=== PATIENT | female | born 1980 | race Caucasian/White ===

== ENCOUNTER → 2016-06-14 | Outpatient (REF) ==
[~2016-06-14] MED LIST: IBU800 M1 PO; MOTRIN 800800 MG/TAB PO; PERCOCET 325 MG1 TA2 PO; PRENATAL PO; PRENATAL1 TA2 PO; SYNTHROID0.1 MG/TAB PO; TIROSINT100 MC1 PO
== END ==
LOC: ZLAB.WCH 17:19
PROVIDERS: Nurse Practitioner Family
DX: Z01.89 Encounter for other specified special examinations (principal)

== ENCOUNTER → 2016-08-23 | Outpatient (REF) | LOC: ZLAB.WCH 18:10 | PROVIDERS: Nurse Practitioner Family | DX: Z01.89 Encounter for other specified special examinations (principal) ==

== ENCOUNTER 2017-06-07 12:54 | Emergency (ER) | payer MEDICAID ==
[~2017-06-07] VITALS: Ht 162.6 cm; Wt 84.5 kg
[2017-06-07 12:56] VITALS: PULSE 89; TEMP 97.8
[2017-06-07 13:19] LABS: COLLECTION METHOD CLEAN CATCH
[2017-06-07 13:35] LABS: MUCOUS Present /lpf; PH 7 (5-8); SQUAMOUS EPITHELIAL 0-2 /hpf; URINE APPEARANCE Clear; URINE BACTERIA None Seen /hpf; URINE BILIRUBIN Negative (NEGATIVE); URINE BLOOD Negative (NEGATIVE); URINE COLOR Yellow; URINE GLUCOSE Negative (NEGATIVE); URINE KETONE 1+ (NEGATIVE); URINE LEUKOCYTE ESTERASE Negative (NEGATIVE); URINE NITRATE Negative (NEGATIVE); URINE PROTEIN(semi-quant) Negative (NEGATIVE); URINE RBC 0-2 /hpf; URINE UROBILINOGEN Negative (NEGATIVE)
[2017-06-07 13:42] LABS: HEMATOCRIT 34.8 % (37.0-47.0); HEMOGLOBIN 11.9 g/dl (12.5-16.0); MEAN CELL VOLUME 84 fl (80.0-100.0); MEAN CORPUSCULAR HEMOGLOBIN 29 pg (27.0-31.0); MEAN CORPUSCULAR HGB CONC 34 g/dl (33.0-37.0); MEAN PLATELET VOLUME 9.3 fl (7.4-10.4); PLATELET COUNT 210 K/mm3 (130-400); RED BLOOD COUNT 4.16 M/mm3 (4.10-5.30); REDCELL DISTRIBUTION WIDTH-CV 13.5 % (11.5-14.5)
[2017-06-07 13:44] LABS: PROTHROMBIN TIME 11.3 SECONDS (9.7-12.8)
[2017-06-07 13:47] LABS: PARTIAL THROMBOPLASTIN TIME 26.6 SECONDS (26.0-37.0)
[2017-06-07 13:49] LABS: ALBUMIN 3.8 gm/dL (3.5-5.0); BILIRUBIN,TOTAL 0.3 mg/dL (0.0-1.0); CALCIUM 8.9 mg/dL (8.4-10.2); CREATININE, serum 0.43 mg/dL (0.52-1.25); POTASSIUM 3.8 mmol/L (3.4-5.0); TOTAL PROTEIN 7.5 gm/dL (6.4-8.2)
[2017-06-07 14:15] LABS: BAND 2 % (0-10); LYMPHOCYTE 23 % (20.0-51.0); NEUTROPHILS 73 % (42.0-75.2); PLATELET ESTIMATE NORMAL (NORMAL)
[2017-06-07 14:19] LABS: THYROID STIMULATING HORMONE 0.237 uIU/mL (0.465-4.680)
[2017-06-07 16:37] VITALS: BP 125/57
== END 2017-06-07 16:40 | disposition home or self-care (01) ==
LOC: COL.ER 12:54
PROVIDERS: Emergency Medicine
DX: O99.89 Other specified diseases and conditions complicating pregnancy, childbirth and the puerperium (principal); O99.283 Endocrine, nutritional and metabolic diseases complicating pregnancy, third trimester; H53.8 Other visual disturbances; E03.9 Hypothyroidism, unspecified; Z90.89 Acquired absence of other organs; Z3A.35 35 weeks gestation of pregnancy
CPT/HCPCS: J7040

== ENCOUNTER 2017-07-19 11:32 | Inpatient (IN) | payer MEDICAID ==
[~2017-07-19] VITALS: Ht 162.6 cm; Wt 88.2 kg
[2017-07-19] VITALS (13 sets, daily range): BP systolic 117–145; BP diastolic 58–75; PULSE 60–90; TEMP 97.8–98.2
[2017-07-19 12:14] LABS: BASO % 0.2 % (0.0-2.0); EOS % 0.1 % (0-4.0); GRAN # 9.4 (1.4-6.5); GRAN % 77.9 % (42.2-75.2); HEMATOCRIT 39.5 % (37.0-47.0); HEMOGLOBIN 13.5 g/dl (12.5-16.0); LYMPH # 1.8 (1.2-3.4); LYMPH % 15.3 % (20.0-51.0); MEAN CELL VOLUME 84 fl (80.0-100.0); MEAN CORPUSCULAR HEMOGLOBIN 29 pg (27.0-31.0); MEAN CORPUSCULAR HGB CONC 34 g/dl (33.0-37.0); MEAN PLATELET VOLUME 9.9 fl (7.4-10.4); MONO # 0.7 (0.1-0.6); MONO % 5.7 % (1.7-9.3); PLATELET COUNT 257 K/mm3 (130-400); RED BLOOD COUNT 4.72 M/mm3 (4.10-5.30)
[2017-07-20] VITALS: BP 103/45; PULSE 57; TEMP 98
[2017-07-20 07:15] VITALS: BP 110/70; PULSE 82; TEMP 97.2
[2017-07-20] MEDS ORDERED: IBU800 M1 PO (09:43)
== END 2017-07-20 16:35 | disposition home or self-care (01) | DRG 775 ==
LOC: LDRO 11:32 → OB 11:43 → LDR 11:43 → OB 11:44
PROVIDERS: Obstetrics & Gynecology
PROC: 10E0XZZ Delivery of Products of Conception, External Approach (ICD-10-PCS; principal; 2017-07-19)
DX: O99.284 Endocrine, nutritional and metabolic diseases complicating childbirth (principal); E03.9 Hypothyroidism, unspecified; Z3A.41 41 weeks gestation of pregnancy; Z37.0 Single live birth; O99.02 Anemia complicating childbirth
CPT/HCPCS: J2590; J7120

== ENCOUNTER 2019-12-20 09:48 | Emergency (ER) | payer MEDICAID ==
[~2019-12-20] VITALS: Ht 162.6 cm; Wt 87.7 kg
[2019-12-20 09:51] VITALS: BP 142/76; TEMP 98.1
[2019-12-20] MEDS ORDERED: TIROSINT13 MC1 (10:14)
[2019-12-20] MEDS ORDERED: LOVENOX 8080 MG/0.8 SQ (10:14)
[2019-12-20 10:23] LABS: BASO % 0.1 % (0.0-2.0); EOS % 0.6 % (0-4.0); GRAN # 5.5 (1.4-6.5); GRAN % 75.7 % (42.2-75.2); HEMATOCRIT 35.1 % (37.0-47.0); LYMPH # 1.3 (1.2-3.4); LYMPH % 17.6 % (20.0-51.0); MEAN CELL VOLUME 84 fl (80.0-100.0); MEAN CORPUSCULAR HEMOGLOBIN 29 pg (27.0-31.0); MEAN CORPUSCULAR HGB CONC 34 g/dl (33.0-37.0); MEAN PLATELET VOLUME 9.4 fl (7.4-10.4); MONO # 0.3 (0.1-0.6); MONO % 4.1 % (1.7-9.3); PLATELET COUNT 214 K/mm3 (130-400); RED BLOOD COUNT 4.18 M/mm3 (4.10-5.30); REDCELL DISTRIBUTION WIDTH-CV 13.4 % (11.5-14.5)
[2019-12-20 10:29] LABS: CREATININE, serum 0.45 (0.52-1.25); POTASSIUM 3.4 mmol/L (3.4-5.0)
--- NOTE | 2019-12-20 11:00 | NUR ---
PATIENT DENIES LEAKING OF FLUID, CONTRACTIONS, OR BLEEDING
[2019-12-20 11:23] LABS: BAND 1 % (0-10); LYMPHOCYTE 25 % (20.0-51.0); NEUTROPHILS 71 % (42.0-75.2); PLATELET ESTIMATE NORMAL (NORMAL)
[2019-12-20 13:20] VITALS: PULSE 78
== END 2019-12-20 13:20 | disposition home or self-care (01) ==
LOC: COL.ER 09:48
PROVIDERS: Physician Assistant
DX: I82.401 Acute embolism and thrombosis of unspecified deep veins of right lower extremity (principal); R06.02 Shortness of breath; R00.2 Palpitations; Z88.8 Allergy status to other drugs, medicaments and biological substances
CPT/HCPCS: J7030; Q9967

== ENCOUNTER → 2020-02-06 | Outpatient (CLI) | payer MEDICAID ==
[~2020-02-06] MED LIST changes: +EPA FISH OIL1 SGL PO; +LOVENOX 8080 MG/0.8 SQ; +TIROSINT13 MC1; +VITAMIN B COMPL1 SGL PO; +VITAMIN D31000 I1 PO; +[UNRECOGNIZED DRUG - OTHER]
== END | disposition still patient (30) ==
LOC: ZCOL.LAB 03:45
DX: U07.1 COVID-19 (principal)

== ENCOUNTER 2020-02-10 07:00 | Inpatient (IN) | payer MEDICAID ==
[~2020-02-10] VITALS: Ht 162.6 cm; Wt 88.8 kg
[2020-02-10] VITALS (40 sets, daily range): BP systolic 99–169; BP diastolic 52–97; PULSE 66–110; TEMP 97.6–98.4
[~2020-02-10 07:00] MED LIST changes: -EPA FISH OIL1 SGL PO; -VITAMIN B COMPL1 SGL PO; -VITAMIN D31000 I1 PO; -[UNRECOGNIZED DRUG - OTHER]
--- NOTE | 2020-02-10 07:00 | NUR ---
Patient ambulatory to LR1 with spouse, changed into gown, FHR/TOCO monitors placed and explained. Patient tested positived for COVID on 02/06/2020 and under isolation precautions. Patient states "I currently have no symptoms of COVID, but 2-3 weeks ago I had lost my taste/smell for a couple of days". Patient denies any regular contractions/leaking of fluid/vaginal bleeding/decreased movement. Plan of care discussed and patient emotional/anxious of pitocin induction at this time. IV started in left hand, unable to obtain blood, LR infusing. Butterfly needle used to obtain blood and blood to lab. Assessment completed/consents signs/ packet given.
[2020-02-10] MEDS ORDERED: VITAMIN B COMPL1 SGL PO (07:38)
[2020-02-10] MEDS ORDERED: EPA FISH OIL1 SGL PO (07:38)
[2020-02-10] MEDS ORDERED: VITAMIN D31000 I1 PO (07:39)
[2020-02-10] MEDS ORDERED: [UNRECOGNIZED DRUG - OTHER] (07:39)
--- NOTE | 2020-02-10 08:00 | NUR ---
Difficulty tracing FHR and this RN and Mark RN at bedside adjusting monitor and FHR tracing in upper right quadrant. notified and orders to wait to start pitocin and will come and do SONO. 0835: Dr. Childers at bedside for SONO and vertex position confirmed. SVE-/-3 and orders to start pitoicin. 0841: Pitocin induction discussed and patient agrees with plan. Pitocin induction started at 2mU/hr per protocol.
[2020-02-10 08:26] LABS: HEMATOCRIT 38.4 % (37.0-47.0); HEMOGLOBIN 13.2 g/dl (12.5-16.0); MEAN CELL VOLUME 84 fl (80.0-100.0); MEAN CORPUSCULAR HEMOGLOBIN 29 pg (27.0-31.0); MEAN CORPUSCULAR HGB CONC 34 g/dl (33.0-37.0); MEAN PLATELET VOLUME 9.4 fl (7.4-10.4); PLATELET COUNT 196 K/mm3 (130-400); RED BLOOD COUNT 4.58 M/mm3 (4.10-5.30); REDCELL DISTRIBUTION WIDTH-CV 14.6 % (11.5-14.5)
[2020-02-10 08:49] LABS: BAND 6 % (0-10); LYMPHOCYTE 12 % (20.0-51.0); METAMYELOCYTE 1 % (0-0); MYELOCYTE 2 % (0-0); NEUTROPHILS 72 % (42.0-75.2); PLATELET ESTIMATE NORMAL (NORMAL)
--- NOTE | 2020-02-10 11:15 | NUR ---
Dr. Childers at bedside and assessing patient/FHR strip. 1118: SVE-3/75/-2 and AROM done at this time with clear fluid. Plan of care discussed. 1200: Patient uncomfortable with contrations and changing positions. Patient standing at edge of bed. 1245: Difficulty tracing FHR and this RN at bedside adjusting monitor. 1300: Patient sitting on birthing ball, difficulty tracing FHR due to position. This RN adjusting monitor. 1400: Abdominal band removed and straps applied and tracing FHR at this time. 1505: Dr. Childers at bedside and SVE- 8-9/90/-2 Patient sitting in gilbert position. 1518: Patient off monitor to void. 1600: SVE-9/90/-2 and patient sitting at edge of bed on birthing ball. Patient changing positions for comfort, this RN at bedside. Patient set up for vaginal delivery. SVE-9/90/-2 Patient repositioned to left lateral. 1615: Recurrent variables tracing. Dr. Childers at bedside. 1645: Patient wanting relief and agrees to epidural. Patient assisted to edge of bed. Patient feeling more pressure and pushing with contractions. 1649: Patient states "baby is coming now", Patient laid back. 1650: Spontaneous vaginal delivery of viable male- head followed by body. bulb syringed and to patients abdomen. Cord clamped and cut by physician. Cord blood obtained. Alysia to bedside and assumes care of infant. 1656: Spontaneous vaginal delivery of placenta and pitocin bolus started per protocol at 333mU/hr. Fundal massage done/firm/bleeding WNL. Pericare done/ice pack to perineum/patient repositioned. Plan of care discussed.
[2020-02-11] VITALS: BP 108/54; PULSE 71; TEMP 98.2
[2020-02-11 04:14] VITALS: BP 102/57; PULSE 80; TEMP 97.9
[2020-02-11 07:48] VITALS: BP 106/60; PULSE 75; TEMP 97.9
[2020-02-11] MEDS ORDERED: IBU800 M1 PO (09:26)
--- NOTE | 2020-02-11 18:50 | NUR ---
Discharge instructions reviewed with pt and at the bedside. Both verbalized an understanding, agreed with the plan and state no questions or concerns at this time.
== END 2020-02-11 19:30 | disposition home or self-care (01) | DRG 805 ==
LOC: LDR 07:00 → OB 09:31 → LDR 02-11 19:30
PROVIDERS: ADMIT Student in an Organized Health Care Education/Training Program
PROC: 10E0XZZ Delivery of Products of Conception, External Approach (ICD-10-PCS; principal; 2020-02-10)
PROC: 0KQM0ZZ Repair Perineum Muscle, Open Approach (ICD-10-PCS; 2020-02-10)
PROC: 10907ZC Drainage of Amniotic Fluid, Therapeutic from Products of Conception, Via Natural or Artificial Opening (ICD-10-PCS; 2020-02-10)
PROC: 3E033VJ Introduction of Other Hormone into Peripheral Vein, Percutaneous Approach (ICD-10-PCS; 2020-02-10)
DX: O99.824 Streptococcus B carrier state complicating childbirth (principal); U07.1 COVID-19; Z37.0 Single live birth; I82.441 Acute embolism and thrombosis of right tibial vein; O98.52 Other viral diseases complicating childbirth; Z3A.39 39 weeks gestation of pregnancy; O99.284 Endocrine, nutritional and metabolic diseases complicating childbirth; O87.1 Deep phlebothrombosis in the puerperium; E03.9 Hypothyroidism, unspecified; O09.43 Supervision of pregnancy with grand multiparity, third trimester
CPT/HCPCS: J2540; J2590; J7120

== ENCOUNTER → 2020-03-16 | Outpatient (CLI) | payer MEDICAID ==
[~2020-03-16] MED LIST changes: +EPA FISH OIL1 SGL PO; +VITAMIN B COMPL1 SGL PO; +VITAMIN D31000 I1 PO; +[UNRECOGNIZED DRUG - OTHER]
== END ==
LOC: COL.VAS 12:45
DX: I82.441 Acute embolism and thrombosis of right tibial vein (principal)

== ENCOUNTER → 2020-07-27 | Outpatient (CLI) | payer MEDICAID | LOC: COL.VAS 07:04 | DX: I82.411 Acute embolism and thrombosis of right femoral vein (principal); D68.61 Antiphospholipid syndrome; M79.89 Other specified soft tissue disorders ==